=== PATIENT | female | born 1950 | race Caucasian/White ===

== ENCOUNTER 2018-01-08 14:19 | Observation (INO) ==
--- NOTE | 2018-01-08 16:12 | Emergency Department Note ---
Disposition Clinical Impression: Altered mental status Qualifiers: Altered mental status type: unspecified Qualified Code(s): R41.82 - Altered mental status, unspecified Disposition: Admitted As Inpatient Condition: Fair Referrals: Hilda Salinas CNP [Primary Care Provider] - Forms: ED Satisfaction Letter Altered Mental Status HPI - General Chief Complaint: ED Altered Mental Status Stated Complaint: AMS x2 days Time Seen by Provider: 01/08/18 15:54 Source: family Mode of arrival: ambulatory Limitations: altered mental status Nursing Notes Reviewed: Yes Vital Signs Reviewed: Yes - History of Present Illness HPI Narrative: 67-year-old female history of dementia, hypertension presents for evaluation of altered mental status. Previously care of the who states that they do live alone at home. states that he she has been more confused than usual the past couple days. Patient states that the patient is typically able to answer where she is at and what data weakness. Patient has not been able to answer those questions appropriately. Denies any recent changes in medications. It denying any chest pain. Patient does say that she feels short of breath. Patient denies any abdominal pain. No urinary or GI complaints. Denies any fevers. Denies any recent additional medications. Patient was treated for a UTI a month ago. - Related Data Home Medications Medication Instructions Recorded Confirmed Acetaminophen [Tylenol] 500 mg PO Q6H PRN 01/08/18 01/08/18 Bupropion HCl [Wellbutrin Xl] 300 mg PO QAM 01/08/18 01/08/18 Diphenhydramine HCl [Restfully 25 mg PO HS 01/08/18 01/08/18 Sleep] Ergocalciferol (VITAMIN D2) 50,000 unit PO MO 01/08/18 01/08/18 [Vitamin D2] Ferrous Gluconate [Ferrous 324 mg PO DAILY 01/08/18 01/08/18 Gluconate] Gabapentin [Neurontin] 800 mg PO HS 01/08/18 01/08/18 Levothyroxine [Synthroid] 50 mcg PO 0630 01/08/18 01/08/18 Melatonin/Herbal Complex #184 3 mg PO HS 01/08/18 01/08/18 [Melatonin + l-Theanine Softgel] Multivit,Th Iron,Other Min 1 each PO DAILY 01/08/18 01/08/18 [Therems-M] Omeprazole [PriLOSEC] 20 mg PO DAILY 01/08/18 01/08/18 Simvastatin [Zocor] 20 mg PO HS 01/08/18 01/08/18 Allergies Allergy/AdvReac Type Severity Reaction Status Date / Time aspirin Allergy Gastrointestinal Verified 01/08/18 14:40 Upset ibuprofen Allergy Gastrointestinal Verified 01/08/18 14:40 Upset nalbuphine [From Nubain] Allergy See Verified 01/08/18 14:40 Comments morphine AdvReac Irritable Verified 01/08/18 14:40 All systems ED: reviewed and negative except as stated. Constitutional: Denies: fever Cardiovascular: Denies: chest pain Respiratory: Reports: dyspnea. Denies: cough, sputum production Gastrointestinal: Denies: abdominal pain, nausea, vomiting Past Medical History - Past Medical History Source: patient, obtained from family Medical history: Reports: arthritis, cancer, thyroid disease, other Surgical history: Reports: cholecystectomy, colectomy, hysterectomy, orthopedic , other, other, pacemaker Psychiatric history: Reports: anxiety, depression [employer] history: Reports: no [employer] history - Social History Smoking Status: Former smoker Smokeless Tobacco Status: No Alcohol use: Reports: none Drug use: Reports: none Physical Exam - General Limitations: altered mental status General appearance: alert, in no apparent distress, other - Head Head exam: atraumatic, normocephalic - Eye Eye exam: Present: normal appearance, PERRL, EOMI. Absent: scleral icterus - ENT ENT exam: normal exam - Neck Neck exam: Present: normal inspection - Chest Chest inspection: Present: normal inspection, symmetric chest wall rise - Respiratory Respiratory exam: Present: normal lung sounds bilaterally. Absent: respiratory distress - Cardiovascular Cardiovascular exam: Present: regular rate, normal rhythm. Absent: systolic murmur - Abdominal Exam Abdominal exam: Present: soft, Non-Tender - Extremities Exam Extremities exam: Present: normal inspection - Back Exam Back exam: Present: normal inspection. Absent: CVA tenderness (R), CVA tenderness (L) - Neurological Exam Neurological exam: Present: alert, CN II-XII intact, other (Confused and unable to answer appropriate questions such as, current president, place, month) - Psychiatric Psychiatric exam: Present: flat affect - Skin Skin exam: Present: warm, dry, intact, normal color Course Course Narrative: Patient seen and examined. Patient will get basic labs as well as looking for source of infection such as chest x-rays urinalysis. Head CT. Disposition pending. - Reevaluation(s) Reevaluation #1: Patient's family is updated on plan of care. Patient's is appreciative that the patient will be admitted. Explained likely course of action is disposition admission and discharge planning. Time: 17:59 Vital Signs Temperature 99.1 F 01/08/18 14:37 Pulse Rate 105 01/08/18 14:37 Respiratory Rate 16 01/08/18 14:37 Blood Pressure 124/80 01/08/18 14:37 O2 Sat by Pulse Oximetry 100 01/08/18 14:37 Temperature 99.1 F 01/08/18 14:37 Pulse Rate 100 01/08/18 17:15 Respiratory Rate 16 01/08/18 17:15 Blood Pressure 129/85 01/08/18 17:15 O2 Sat by Pulse Oximetry 99 01/08/18 17:15 Oxygen Delivery Oxygen Delivery Room Air Altered Mental Status - [facility] Narrative Medical decision making narrative: 67-year-old female presents for evaluation of altered mental status. Patient's provided much of the history states patient has had an acute change in mental status over the past 2 days. Normally the patient's more alert and appropriate in answering questions. She is normally alert the place as well as time. Patient workup and the most part was unremarkable. Patient's head CT showed no acute abnormalities. Patient's symptoms are less likely result of a stroke. Patient does not have a fever or secondary signs of meningitis. Patient's urinalysis also is unremarkable. Patient's chest x-ray shows no signs of infection. Patient's labs are unremarkable. Given the patient's 's concern about home assistance at home. Patient will be admitted with likely further evaluation and discharge planning. - Lab Data Lab results reviewed: Yes I reviewed the patient's lab results. Result diagrams: 01/08/18 16:00 01/08/18 16:00 Lab Results 01/08/18 01/08/18 01/08/18 Range/Units 16:00 16:00 16:00 WBC 7.8 (4.3-11.1) K/mcL RBC 3.73 L (3.82-4.97) M/mcL Hgb 11.0 L (11.5-15.4) g/dL Hct 33.2 L (35.3-44.9) % MCV 89.0 (83.0-100.0) fL MCH 29.5 (28.0-33.3) pg MCHC 33.1 (31.6-35.5) g/dL RDW 13.2 (11.5-14.5) % Plt Count 401 H (140-400) K/mcL MPV 10.5 (9.4-12.4) fL Immature Gran % 0.4 (0-4) % Seg Neutrophils % 73.5 % Lymphocytes % 17.0 % Monocytes % 7.7 % Eosinophils % 0.6 % Basophils % 0.8 % Neutrophils # 5.8 (1.6-8.9) K/mcL Lymphocytes # 1.3 (0.6-4.6) K/mcL Monocytes # 0.6 (0.0-1.3) K/mcL Eosinophils # 0.1 (0.0-0.6) K/mcL Basophils # 0.1 (0.0-0.2) K/mcL Sodium 140 (136-145) mEq/L Potassium 3.8 (3.5-5.1) mEq/L Chloride 110 H (98-107) mEq/L Carbon Dioxide 22 L (23-29) mEq/L BUN 31 H (8-23) mg/dL Creatinine 0.81 (0.60-1.20) mg/dL Est GFR ( Amer) > 60 (> 60) Est GFR (Non-Af Amer) > 60 (> 60) BUN/Creatinine Ratio 38 H (6-26) Glucose 118 H (70-105) mg/dL Calculated Osmolality 298 (280-300) Calcium 10.0 (8.6-10.3) mg/dL Total Bilirubin 0.5 (0.3-1.0) mg/dL Direct Bilirubin 0.1 (0.0-0.2) mg/dL Indirect Bilirubin 0.4 (0.0-1.2) mg/dL AST 20 (13-39) Units/L ALT 14 (7-52) Units/L Alkaline Phosphatase 88 (34-104) Units/L Troponin I < 0.03 (< 0.04) ng/mL B-Natriuretic Peptide 12 (Less than 100) pg/mL Serum Total Protein 7.6 (6.4-8.9) g/dL Albumin 4.8 (3.5-5.7) g/dL Globulin 2.8 (2.4-3.5) g/dL Albumin/Globulin Ratio 1.7 (1.1-2.2) TSH 5.048 (0.340-5.600) mcIU/mL Ur Specimen Adequacy Urine Color (Yellow) Urine Clarity (Clear) Urine pH (5.0-8.0) pH Units Ur Specific [place] (1.010-1.025) Urine Protein (Neg-Trace) mg/dL Urine Glucose (UA) (Normal) mg/dL Urine Ketones (Negative) mg/dL Urine Blood (Negative) Urine Nitrite (Negative) Urine Bilirubin (Negative) Urine Urobilinogen (Normal) mg/dL Ur Leukocyte Esterase (Negative) Ur Squamous Epith Cells (None-Few) per lpf Calcium Oxalate Crystal Urine Mucus (Few) Ethyl Alcohol Cancelled 01/08/18 Range/Units 17:12 WBC (4.3-11.1) K/mcL RBC (3.82-4.97) M/mcL Hgb (11.5-15.4) g/dL Hct (35.3-44.9) % MCV (83.0-100.0) fL MCH (28.0-33.3) pg MCHC (31.6-35.5) g/dL RDW (11.5-14.5) % Plt Count (140-400) K/mcL MPV (9.4-12.4) fL Immature Gran % (0-4) % Seg Neutrophils % % Lymphocytes % % Monocytes % % Eosinophils % % Basophils % % Neutrophils # (1.6-8.9) K/mcL Lymphocytes # (0.6-4.6) K/mcL Monocytes # (0.0-1.3) K/mcL Eosinophils # (0.0-0.6) K/mcL Basophils # (0.0-0.2) K/mcL Sodium (136-145) mEq/L Potassium (3.5-5.1) mEq/L Chloride (98-107) mEq/L Carbon Dioxide (23-29) mEq/L BUN (8-23) mg/dL Creatinine (0.60-1.20) mg/dL Est GFR ( Amer) (> 60) Est GFR (Non-Af Amer) (> 60) BUN/Creatinine Ratio (6-26) Glucose (70-105) mg/dL Calculated Osmolality (280-300) Calcium (8.6-10.3) mg/dL Total Bilirubin (0.3-1.0) mg/dL Direct Bilirubin (0.0-0.2) mg/dL Indirect Bilirubin (0.0-1.2) mg/dL AST (13-39) Units/L ALT (7-52) Units/L Alkaline Phosphatase (34-104) Units/L Troponin I (< 0.04) ng/mL B-Natriuretic Peptide (Less than 100) pg/mL Serum Total Protein (6.4-8.9) g/dL Albumin (3.5-5.7) g/dL Globulin (2.4-3.5) g/dL Albumin/Globulin Ratio (1.1-2.2) TSH (0.340-5.600) mcIU/mL Ur Specimen Adequacy See below A Urine Color Yellow (Yellow) Urine Clarity Slightly Hazy (Clear) Urine pH 6.0 (5.0-8.0) pH Units Ur Specific [place] >= 1.030 H (1.010-1.025) Urine Protein Trace (Neg-Trace) mg/dL Urine Glucose (UA) Normal (Normal) mg/dL Urine Ketones Negative (Negative) mg/dL Urine Blood Trace-lysed H (Negative) Urine Nitrite Negative (Negative) Urine Bilirubin Negative (Negative) Urine Urobilinogen Normal (Normal) mg/dL Ur Leukocyte Esterase Negative (Negative) Ur Squamous Epith Cells Few (None-Few) per lpf Calcium Oxalate Crystal Present Urine Mucus Few (Few) Ethyl Alcohol - Radiology Data Radiology results reviewed: Yes I reviewed the patient's radiology results. Chest X-Ray 01/08/18 14:41 IMPRESSION: No acute process. D/ / Billy Esteves MD / Billy Esteves MD Interpreting Provider: Billy Esteves MD Head CT 01/08/18 16:06 IMPRESSION: Stable noncontrast examination of the brain without CT evidence of acute intracranial abnormality and re- demonstration of chronic small vessel ischemic changes. D/ / Yuliana Baca MD / Yuliana Baca MD Interpreting Provider: Yuliana Baca MD - EKG Data EKG attestation: Yes I reviewed and interpreted this EKG. EKG shows normal: sinus rhythm Rate: normal Rhythm: NSR [place]/QRS: left axis deviation, LAHB/LAFB T wave inversions: v1 (flatten) QRS morphology: poor R-wave progression Interpretation: no acute changes, nonspecific ST-T wave changes TPA Checklist - LKW: 3-4.5 hrs Add. Warnings/Precautions Patient/family understanding: The patient/family members have been counseled and understood the risk, benefit , and alternatives of treatment. Attestation Statement - Attestation Attestation: I examined this patient and my medical decision-making was reviewed with the Resident Physician. I agree with the documented findings, disposition and treatment plan as described except to the extent set forth below. Patient to ED with altered mental status. History provided by her . He states she has been more confused over the last 3 days. She has been more severe than usual. He has not been able to leave her. Normally knows her name and where she is but she does not today. Patient was treated for UTI by her PCP one month ago. He denies any falls or injuries. Patient awake and alert on evaluation. She defers all answers to her . Lungs clear. Abdomen soft. Plan. Altered mental status workup. is concerned for her safety.
[2018-01-08 16:19] LABS: Basophils # 0.1 K/mcL (0.0-0.2); Basophils % 0.8 %; Eosinophils # 0.1 K/mcL (0.0-0.6); Eosinophils % 0.6 %; Hematocrit 33.2 % (35.3-44.9); Immature Granulocytes % 0.4 % (0-4); Lymphocytes # 1.3 K/mcL (0.6-4.6); Mean Corpuscular HGB Conc 33.1 g/dL (31.6-35.5); Mean Corpuscular Hemoglobin 29.5 pg (28.0-33.3); Mean Platelet Volume 10.5 fL (9.4-12.4); Monocytes # 0.6 K/mcL (0.0-1.3); Monocytes % 7.7 %; Neutrophils # 5.8 K/mcL (1.6-8.9); Platelet Count 401 K/mcL (140-400); Red Blood Count 3.73 M/mcL (3.82-4.97); Red Cell Distribution Width 13.2 % (11.5-14.5); Segmented Neutrophils % 73.5 %
[2018-01-08 16:37] LABS: Troponin I < 0.03 ng/mL (< 0.04)
[2018-01-08 16:38] LABS: Alanine Aminotransferase 14 Units/L (7-52); Albumin 4.8 g/dL (3.5-5.7); Albumin/Globulin Ratio 1.7 (1.1-2.2); Alkaline Phosphatase 88 Units/L (34-104); Aspartate Amino Transferase 20 Units/L (13-39); BUN/Creatinine Ratio 38 (6-26); Bilirubin,Direct 0.1 mg/dL (0.0-0.2); Bilirubin,Indirect 0.4 mg/dL (0.0-1.2); Bilirubin,Total 0.5 mg/dL (0.3-1.0); Blood Urea Nitrogen 31 mg/dL (8-23); Carbon Dioxide 22 mEq/L (23-29); Chloride 110 mEq/L (98-107); Globulin 2.8 g/dL (2.4-3.5); Glucose 118 mg/dL (70-105); Osmolality,Calculated 298 (280-300); Potassium 3.8 mEq/L (3.5-5.1); Sodium 140 mEq/L (136-145); Total Protein 7.6 g/dL (6.4-8.9); eGFR For African Americans > 60 (> 60); eGFR For Non-African Americans > 60 (> 60)
[2018-01-08 16:50] LABS: Thyroid Stimulating Hormone 5.048 mcIU/mL (0.340-5.600)
[2018-01-08 17:43] LABS: Bilirubin,Urine Negative (Negative); Blood,Urine Trace-lysed (Negative); Color,Urine Yellow (Yellow); Glucose,Urine (UA) Normal (Normal); Ketones,Urine Negative (Negative); Leukocyte Esterase,Urine Negative (Negative); Nitrite,Urine Negative (Negative); Protein,Urine Trace mg/dL (Neg-Trace); Specific Gravity,Urine >= 1.030 (1.010-1.025); Urobilinogen,Urine Normal (Normal)
[2018-01-08 17:44] LABS: Clarity,Urine Slightly Hazy (Clear)
[2018-01-08 17:52] LABS: Calcium Oxalate Crystals,Urine Present; Mucus,Urine Few (Few); Squamous Epithelial Cell,Urine Few per lpf (None-Few)
[2018-01-08] MEDS ORDERED: 0.9 % Sodium Chloride 1,000 ML IVC ONE (17:54)
[2018-01-08 18:06] LABS: Amphetamine Screen,Urine Negative ng/mL (Cutoff=1000); Barbiturate Screen,Urine Negative ng/mL (Cutoff=200); Benzodiazepines Screen,Urine Negative ng/mL (Cutoff=200); Cannabinoid Screen,Urine Negative ng/mL (Cutoff = 50); Cocaine Screen,Urine Negative ng/mL (Cutoff= 300); Opiate Screen,Urine Negative ng/mL (Cutoff=300); Phencyclidine Screen,Urine Negative ng/mL (Cutoff=25)
[2018-01-08] MEDS ORDERED: Acetaminophen 325 MG TABLET PO PRN (20:11)
[2018-01-08] MEDS ORDERED: Naloxone 0.4 MG/ML INJ IVP PRN (20:11)
--- NOTE | 2018-01-08 20:26 | Internal Med History&Physical ---
Date of Encounter: 01/08/18 Time of Encounter: 19:45 Assessment and Plan (1) Altered mental status Current visit: Yes Status: Acute Patient with history of dementia presenting with altered mental status. Most likely metabolic encephalopathy. Could be medication related. Patient also appears to be dehydrated. We will monitor vital signs. Monitor mental status. Patient is on gabapentin 800 mg at bedtime at home. Will decrease dosage to 600 mg. Observe patient overnight. We will consult social research assistant for help with discharge planning. Qualifiers: Altered mental status type: disorientation Qualified Code(s): R41.0 - Disorientation, unspecified (2) Essential hypertension Current visit: Yes Status: Chronic Monitor blood pressure. Patient does not appear to be in any medications at home. (3) Hypothyroidism Current visit: Yes Status: Chronic Normal TSH. Qualifiers: Hypothyroidism type: acquired Qualified Code(s): E03.9 - Hypothyroidism, unspecified Internal Medicine - H&P: HPI Chief complaint: Confusion, disorientation Admitted From: Emergency Dept Plans for Post Hospital Care: Home History of present illness: Ms. Chaney is a 67 year old female patient with a history of dementia possibly Alzheimer's type, hypertension, presented to the ER with altered mental status and confusion. Has been going on progressively over the past 3 days. Patient is unable to provide much history due to her underlying dementia. History is therefore being obtained from her was present at the bedside. At baseline, patient has memory problems and needs help with her daily activities but she is usually oriented and is able to answer most questions well. The notices that the patient was becoming more disoriented and did not seem to be her usual self. She denies any chest pain or palpitations but according to the she did have some nausea and an episode of emesis. She also complained of abdominal pain but that has subsided now. She was treated for UTI 1 month back when she developed similar symptoms. She presently is not having any dysuria or trouble passing urine. She does report increased thirst at this time. No focal weakness. No headaches. No blurred vision. No slurred speech. Past Med Surg Social Fam HX - Past Medical History Attestation: Yes The following information was validated with the patient. Source: patient Medical history: arthritis, cancer, thyroid disease, other Psychiatric history: anxiety, depression - Past Surgical History Surgical History: cholecystectomy, colectomy, hysterectomy, orthopedic, other, other, pacemaker - Social History Smoking Status: Former smoker Smokeless Tobacco Status: No Alcohol use: none Drug use: none Internal Medicine - H&P: Meds Acetaminophen [Tylenol] 500 mg PO Q6H PRN 01/08/18 [History] Bupropion HCl [Wellbutrin Xl] 300 mg PO QAM 01/08/18 [History] Diphenhydramine HCl [Restfully Sleep] 25 mg PO HS 01/08/18 [History] Ergocalciferol (VITAMIN D2) [Vitamin D2] 50,000 unit PO MO 01/08/18 [History] Ferrous Gluconate [Ferrous Gluconate] 324 mg PO DAILY 01/08/18 [History] Gabapentin [Neurontin] 800 mg PO HS 01/08/18 [History] Levothyroxine [Synthroid] 50 mcg PO 0630 01/08/18 [History] Melatonin/Herbal Complex #184 [Melatonin + l-Theanine Softgel] 3 mg PO HS [History] Multivit,Th Iron,Other Min [Therems-M] 1 each PO DAILY 01/08/18 [History] Omeprazole [PriLOSEC] 20 mg PO DAILY 01/08/18 [History] Simvastatin [Zocor] 20 mg PO HS 01/08/18 [History] 3 Allergy/AdvReac Type Severity Reaction Status Date / Time aspirin Allergy Gastrointestinal Verified 01/08/18 14:40 Upset ibuprofen Allergy Gastrointestinal Verified 01/08/18 14:40 Upset nalbuphine [From Nubain] Allergy See Verified 01/08/18 14:40 Comments morphine AdvReac Irritable Verified 01/08/18 14:40 All Systems PM: A 10-system review of systems was performed and is negative for pertinent findings except as documented above in the HPI. - Constitutional Constitutional: malaise, no chills, no fever(s), no night sweats - EENT Eyes: no change in vision, no discharge, no pain, no photophobia Ears: no ear discharge, no ear pain, no tinnitus Nose, mouth and throat: no dysphagia, no nasal discharge, no neck pain, no sore throat - Cardiovascular Cardiovascular ROS IM: no chest pain, no diaphoresis, no dyspnea, no lightheadedness, no palpitations, no syncope - Respiratory Respiratory: no cough, no dyspnea, no wheezing, no excessive phlegm production - Gastrointestinal Gastrointestinal: no abdominal pain, no diarrhea, no hematemesis, no hematochezia, no melena, no nausea, no vomiting - Genitourinary Genitourinary: no change in urinary stream, no dysuria, no flank pain, no hematuria - Musculoskeletal Musculoskeletal ROS IM: no numbness, no tingling - Integumentary Integumentary IM: no rash, no unusual bruising - Neurological Neurological ROS: no confusion, no convulsions, no focal weakness, no numbness, no tingling, no tremor(s) - Hematologic/Lymphatic Hematologic/Lymphatic: no easy bruising - Constitutional Vitals: Temp Pulse Resp BP Pulse Ox 99.1 F 93 18 123/91 93 01/08/18 14:37 01/08/18 20:16 01/08/18 20:16 01/08/18 20:16 01/08/18 20:16 General appearance: Present: cooperative, A&O X 1 Exam: Patient is able to answer current questions but has trouble with short and long- term memory. - Respiratory Respiratory exam: Present: CTAB. Absent: accessory muscle use, rales, rhonchi, wheezes - Cardiovascular Cardiovascular exam: Present: RRR, +S1, +S2. Absent: diastolic murmur, gallop, rubs, systolic murmur - GI/Abdominal GI/Abdominal exam: Present: normal bowel sounds, soft, no peritoneal signs. Absent: distended, tenderness - Extremities Exam Extremities exam: Present: warm, radial pulses palpable and symmetrical. Absent : calf tenderness, cyanotic, pedal edema - Neurological Exam Neurological exam: Present: altered, CN II-XII intact, no focal deficits. Absent: facial droop, speech deficit - Skin Skin exam: Present: dry, intact Internal Med - H&P Results - Labs CBC & Chem 7: 01/08/18 16:00 01/08/18 16:00 - Impressions Impressions Chest X-Ray 01/08/18 14:41 IMPRESSION: No acute process. D/ / Billy Esteves MD / Billy Esteves MD Interpreting Provider: Billy Esteves MD Head CT 01/08/18 16:06 IMPRESSION: Stable noncontrast examination of the brain without CT evidence of acute intracranial abnormality and re- demonstration of chronic small vessel ischemic changes. D/ / Yuliana Baca MD / Yuliana Baca MD Interpreting Provider: Yuliana Baca MD
[2018-01-08] MEDS ORDERED: Gabapentin 300 MG CAPSULE PO SCH (21:00)
[2018-01-08] MEDS ORDERED: Melatonin 3 MG TABLET PO SCH (21:00)
[2018-01-09] MEDS ORDERED: Ringers Solution, Lactated 1,000 ML IVC SCH (00:30)
--- NOTE | 2018-01-09 07:27 | Electrocardiograph Report ---
[place] [id number] Test Date: 2018-01-08 Pat Name: Margarita Chaney Department: 102 Room: 3B11 Gender: F Tour Director: : 1950 Requested By: Navi Neville Order Number: [id number] Reading MD: Erick Alvarado MD Measurements Intervals Doss Rate: 98 P: 1 MD: 117 QRS: -45 QRSD: 85 T: 31 QT: 342 QTc: 398 Interpretive Statements SINUS RHYTHM WITH SHORT MD INTERVAL Poor R wave progression LEFT ANTERIOR FASCICULAR BLOCK MODERATE VOLTAGE CRITERIA FOR LVH Electronically Signed On 01-09-2018 7:25:16 EDT by Erick Alvarado MD
[2018-01-09] MEDS ORDERED: Multivit/Ca/Min/Fe/FA 1 TAB TABLET PO SCH (09:00)
[2018-01-09] MEDS ORDERED: BuPROPion XL (24 HR) 150 MG TABLET PO SCH (09:00)
[2018-01-09 11:51] VITALS: BP 125/86
[2018-01-09 13:32] LABS: Bilirubin,Urine Negative (Negative); Blood,Urine Negative (Negative); Clarity,Urine Clear (Clear); Color,Urine Yellow (Yellow); Glucose,Urine (UA) Normal (Normal); Ketones,Urine Negative (Negative); Leukocyte Esterase,Urine Moderate (Negative); Nitrite,Urine Negative (Negative); Protein,Urine Negative (Neg-Trace); Specific Gravity,Urine > 1.030 (1.010-1.025); Urobilinogen,Urine Normal (Normal)
[2018-01-09 13:34] LABS: Bacteria,Urine None Seen per hpf (None-Few); Hyaline Casts,Urine None Seen per lpf (None-Few); Squamous Epithelial Cell,Urine Many per lpf (None-Few); WBC,Urine 15-30 per hpf (0-3)
--- NOTE | 2018-01-09 14:32 | Discharge Summary ---
- NOTES TO OUTPATIENT PROVIDER Notes to Outpatient Provider: Recommend possible change in Gabapentin. Pt has returned to baseline after it was stopped at home and dose decreased here during admission. Neither pt nor know why she is taking it. Pt also is taking 2 sleep aids at home, I will recommend stopping one, likely the Benadryl. Date of Encounter: 01/09/18 Time of Encounter: 09:00 - Discharge Diagnosis (1) Altered mental status Priority: Primary Status: Resolved Comments: Pt is alert and oriented to name and place, unaware of month or year, is aware of President. at bedside states that she has returned to her baseline. Urine and repeat urine are negative for infection. Chest xray negative for acute cardiopulmonary process. Head CT is stable, no evidence of acute intracranial abnormality, chronic small vessel ischemic changes. Pt has been afebrile and has no leukocytosis. states that due to patient's dementia, she has become more stubborn at home and sometimes takes her medications twice ,likely cause of AMS on admission. Recommend that pt has home health and assistance with setting up medications, COAL PASSER on board. Qualifiers: Altered mental status type: disorientation Qualified Code(s): R41.0 - Disorientation, unspecified (2) Dementia Priority: Secondary Status: Chronic Comments: Chronic. Pt lives at home with , recommend home health for assistance with medication set up and administration. Continue to monitor for safety. Qualifiers: Dementia type: unspecified type Dementia behavioral disturbance: without behavioral disturbance Qualified Code(s): F03.90 - Unspecified dementia without behavioral disturbance (3) Noncompliance Priority: Secondary Status: Acute Comments: reports that pt sometimes takes her medication doses twice. He states that she "has become more stubborn and wants to do everything herself." Likely cause of her altered mental status on admission, pt takes 2 kinds of sleep aids and Gabapentin. states that he held her medication at home for 2 days prior to arrival and with decrease in dose of Gabapentin, pt has returned to baseline. Recommend home health for assistance with setting up and securing pt's medications. (4) Essential hypertension Priority: Secondary Status: Chronic Comments: Well controlled. Continue home medications. (5) Hypothyroidism Priority: Secondary Status: Chronic Comments: Chronic. .Continue home medications. Qualifiers: Hypothyroidism type: acquired Qualified Code(s): E03.9 - Hypothyroidism, unspecified (6) DVT prophylaxis Priority: Secondary Status: Acute Comments: Observation status, pt has been up to chair and at bedside. Hospital course: Ms. Chaney is a 67 year old female Discharge discussed with: patient, family - Time Spent with Patient Total time spent providing and/or coordinating discharge services: Less than 30 minutes - Discharge Medications Prescriptions: Gabapentin [Neurontin] 600 mg PO HS #14 tablet Home Medications: Acetaminophen [Tylenol] 500 mg PO Q6H PRN 01/08/18 [History] Bupropion HCl [Wellbutrin Xl] 300 mg PO QAM 01/08/18 [History] Ergocalciferol (VITAMIN D2) [Vitamin D2] 50,000 unit PO MO 01/08/18 [History] Ferrous Gluconate 324 mg PO DAILY 01/08/18 [History] Levothyroxine [Synthroid] 50 mcg PO 0630 01/08/18 [History] Melatonin/Herbal Complex #184 [Melatonin + l-Theanine Softgel] 3 mg PO HS [History] Multivit,Th Iron,Other Min [Therems-M] 1 each PO DAILY 01/08/18 [History] Omeprazole [PriLOSEC] 20 mg PO DAILY 01/08/18 [History] Simvastatin [Zocor] 20 mg PO HS 01/08/18 [History] Gabapentin [Neurontin] 600 mg PO HS #14 tablet 01/09/18 [Rx] Allergies/Adverse Reactions: 3 Allergy/AdvReac Type Severity Reaction Status Date / Time aspirin Allergy Gastrointestinal Verified 01/08/18 14:40 Upset ibuprofen Allergy Gastrointestinal Verified 01/08/18 14:40 Upset nalbuphine [From Nubain] Allergy See Verified 01/08/18 14:40 Comments morphine AdvReac Irritable Verified 01/08/18 14:40 Date of admission: 01/08/18 19:52 Primary care physician: Hilda Salinas CNP Consults: 01/09/18 00:20 Consult to Tube Puller [CONS] Routine Reason for SW Consult: DischarGE planning Discharging clinician: Lenora Villeda Anticipated date of discharge: 01/09/18 - Constitutional Vitals: Temp Pulse Resp BP Pulse Ox 97.6 F 81 16 125/86 100 01/09/18 11:50 01/09/18 11:50 01/09/18 11:50 01/09/18 11:50 01/09/18 11:50 General appearance: Present: cooperative, A&O X 1, pleasant, no acute distress, answers questions appropriately - Head Head exam: Present: atraumatic, normal inspection, normocephalic - Eye Eye exam: Present: normal appearance, conjuntiva pink, sclera anicteric - Neck Neck exam general surgery: Present: normal inspection, supple, trachea midline. Absent: lymphadenopathy, tenderness - Respiratory Respiratory exam: Present: CTAB. Absent: accessory muscle use, rales, rhonchi, wheezes - Cardiovascular Cardiovascular exam: Present: RRR, +S1, +S2. Absent: diastolic murmur, gallop, rubs, systolic murmur - GI/Abdominal GI/Abdominal exam: Present: normal bowel sounds, soft, no peritoneal signs. Absent: distended, hepatomegaly, tenderness - Extremities Exam Extremities exam: Present: normal capillary refill, normal inspection, warm, radial pulses palpable and symmetrical. Absent: calf tenderness, cyanotic, pedal edema - Neurological Exam Neurological exam: Present: alert, no focal deficits. Absent: oriented X3, facial droop, speech deficit - Skin Skin exam: Present: dry, intact, normal color, warm. Absent: rash - Patient Status Disposition: Home Health Service Condition: Good Functional capacity at discharge: independent ambulation Overall status at discharge: patient is back to baseline - Discharge Instructions Follow Up With: Hilda Salinas CNP [Primary Care Provider] - Additional Instructions: Stop taking the 800mg Neurontin at night. Start taking 600mg tablet, the prescription has been called to [facility] pharmacy in [place]. Be cautious to not give the wrong dose. Resume her other home medications. Resume diet and activities as tolerated. Follow up with your PCP in the next 7-10 days for a recheck and refill on lowered dose of Gabapentin. Return to the ER as needed for any other problems or concerns, or if your symptoms return or worsen. - Diet and Activity Activity: increase activity as tolerated Diet: advance to your usual diet
--- NOTE | 2018-01-09 15:07 | Physician Discharge Referral ---
Home Health/Hosp Referral Info Transfer to: Home Health Provider in Charge Post Discharge: PCP - Diagnosis (1) Altered mental status Priority: Primary Status: Resolved (2) Dementia Priority: Secondary Status: Chronic (3) Noncompliance Priority: Secondary Status: Acute (4) Essential hypertension Priority: Secondary Status: Chronic (5) Hypothyroidism Priority: Secondary Status: Chronic (6) DVT prophylaxis Priority: Secondary Status: Acute - Respiratory Orders Smoking Cessation: Smoking cessation has been advised. For more information, call the [place] Tobacco Quit Line at 1-136-EIPW-NOW. - Diet/Nutrition Diet/Nutrition Orders: Regular - Activity Activity Orders: Up ad dilcia - Services Needed Following services are medically necessary services: Nursing (Requesting assistance for medication set up at home), Home Health Aide - Transfer Medications Prescriptions: Gabapentin [Neurontin] 600 mg PO HS #14 tablet Home Medications: Acetaminophen [Tylenol] 500 mg PO Q6H PRN 01/08/18 [History] Bupropion HCl [Wellbutrin Xl] 300 mg PO QAM 01/08/18 [History] Ergocalciferol (VITAMIN D2) [Vitamin D2] 50,000 unit PO MO 01/08/18 [History] Ferrous Gluconate 324 mg PO DAILY 01/08/18 [History] Levothyroxine [Synthroid] 50 mcg PO 0630 01/08/18 [History] Melatonin/Herbal Complex #184 [Melatonin + l-Theanine Softgel] 3 mg PO HS [History] Multivit,Th Iron,Other Min [Therems-M] 1 each PO DAILY 01/08/18 [History] Omeprazole [PriLOSEC] 20 mg PO DAILY 01/08/18 [History] Simvastatin [Zocor] 20 mg PO HS 01/08/18 [History] Gabapentin [Neurontin] 600 mg PO HS #14 tablet 01/09/18 [Rx] Allergies/Adverse Reactions: 3 Allergy/AdvReac Type Severity Reaction Status Date / Time aspirin Allergy Gastrointestinal Verified 01/08/18 14:40 Upset ibuprofen Allergy Gastrointestinal Verified 01/08/18 14:40 Upset nalbuphine [From Nubain] Allergy See Verified 01/08/18 14:40 Comments morphine AdvReac Irritable Verified 01/08/18 14:40 Certification: Further, I certify that my clinical findings support that this patient is homebound (i.e. absences from home require considerable and taxing effort and are for medical reasons or anabaptist services or infrequently or short duration when for other reasons) because: Homebound Reason: Altered mental status requiring supervision when leaving home Attestation: My signature below is to certify that this patient is under my care and that I, or nurse practitioner, or a physician's assistant merchandiser working with me, has a face-to -face encounter with this patient.
== END 2018-01-09 16:22 | disposition home health service (06) ==
LOC: EMEROO 14:19 → 3BNU 14:19
PROVIDERS: ADMIT Internal Medicine; ATTEND Registered Nurse

== ENCOUNTER 2018-04-27 00:43 | Inpatient (IN) ==
--- NOTE | 2018-04-27 05:41 | Internal Med History&Physical ---
Date of Encounter: 04/27/18 Time of Encounter: 05:30 Internal Medicine - H&P: HPI Chief complaint: abdominal pain History of present illness: Ms. Chaney is a 67 year old female pacemaker, gastric ulcer, hypertension, dementia, and PE who presented to the ED at [facility] for left upper quadrant pain. Patient states that she has been having abdominal cramping for about 3 weeks. She is not able to eat anything for about a week. She is unsure how long she was in the hospital but she was discharged on 04/19 from [facility] at [place]. She believes that she has been on Cipro for one week. Her last bowel movement was one week ago. She does admit to associated nausea and vomiting. Denies dysuria, diarrhea, hemoptysis, hematochezia. Patient's previous surgeries have been at [facility] but her surgeon no longer works at [facility]. She cannot recall how long ago her last colonoscopy was. Upon arrival to the ED, patient's blood pressure was 176/110, heart rate of 76. Labs showed a hemoglobin of 10.9 platelet count of 421 potassium of 2.9 and creatinine of 0.87,. lactic acid, Amylase and lipase were negative. Liver enzymes are within normal limits. UA suspicious for a UTI with positive nitrates. CT of the abdomen and pelvis showed moderate sigmoid d diverticulosis , persistent probable adynamic ileus. In the ED, patient was given Phenergan, 1 L bolus, potassium chloride 10 mEq to 100 ml, Cipro, Flagyl, Dilaudid, and Zofran. Patient was transferred from [facility] in [place] to [facility] for surgical consult for sigmoid diverticulitis and ileus. Past Med Surg Social Fam HX - Past Medical History Medical history: arthritis, cancer, thyroid disease, other Additional medical history: small bowel obstruction Psychiatric history: anxiety, depression - Past Surgical History Surgical History: cholecystectomy, colectomy, hysterectomy, orthopedic, other, other, pacemaker Additional surgical history: bowel surgery r/t small bowel obstruction September 29. bilat shoulder rotator cuff. bilat carpal tunnel - Social History Smoking Status: Former smoker Smokeless Tobacco Status: No Alcohol use: none Drug use: none - Family History Mother History Unknown: Yes Hx Family Cancer: Yes (lung) Father History Unknown: Yes Hx Family Cancer: Yes (lung) Internal Medicine - H&P: Meds Bupropion HCl [Wellbutrin Xl] 150 mg PO QAM 01/08/18 [History] Ergocalciferol (VITAMIN D2) [Vitamin D2] 50,000 unit PO MO 01/08/18 [History] Ciprofloxacin HCl [Cipro] 500 mg PO DAILY 04/27/18 [History] Melatonin 5 mg PO QPM PRN 04/27/18 [History] metroNIDAZOLE [Flagyl] 500 mg PO DAILY 04/27/18 [History] 3 Allergy/AdvReac Type Severity Reaction Status Date / Time aspirin Allergy Gastrointestinal Verified 01/08/18 14:40 Upset ibuprofen Allergy Gastrointestinal Verified 01/08/18 14:40 Upset nalbuphine [From Nubain] Allergy See Verified 01/08/18 14:40 Comments morphine AdvReac Irritable Verified 01/08/18 14:40 All Systems PM: A 10-system review of systems was performed and is negative for pertinent findings except as documented above in the HPI. - Constitutional Vitals: Temp Pulse Resp BP Pulse Ox 98.4 F 53 16 149/89 98 04/27/18 03:05 04/27/18 03:05 04/27/18 03:05 04/27/18 03:05 04/27/18 03:05 Exam: Constitutional: Alert, in no acute distress Head: Normocephalic, atraumatic Heart: Normal, regular rate and rhythm, no murmurs Lungs: Clear to auscultation, no wheezes, rales, or rhonchi Abdomen: diffuse tenderness, worst in the left upper quadrant. bowel sounds hyperactive, Soft, nondistended, no guarding or rigidity. Extremities: No edema, No clubbing, radial pulse +2/4, capillary refill <2sec. Skin: Skin warm and dry, no lesions, no rashes, no jaundice Neurologic: CN grossly intact Psych: Cooperative with exam, good eye contact, impaired memory of longer term events, speech clear, thought process logical, and goal directed - Assessment and plan (1) Sigmoid diverticulosis Current Visit: Yes Status: Acute Assessment and plan: CT abdomen and pelvis showed sigmoid diverticulitis and ileus. Surgery consulted for diverticulitis and ileus. Patient has been on Plan: - Zosyn IV TID, as patient has failed metronidazole and cipro - pain control: Oxycodone 5mg SL - surgery consult in for the AM (2) Ileus Current Visit: Yes Status: Acute Assessment and plan: Possibly 2/2 to electrolyte imbalance, hypokalemia. Plan: - correct potassium levels -Consider NG if patient starts to have vomiting - Zofran for nausea - Diet NPO. (3) Essential hypertension Current Visit: No Status: Chronic Assessment and plan: Patient is NPO therefore will add IV hydralazine for prn coverage for systolic BP > 160. (4) Hypokalemia Current Visit: Yes Status: Acute Assessment and plan: potassium 2.9. replaced K 10meq in the Ed. Replace with KCl 40meq IV and recheck. (5) DVT prophylaxis Current Visit: No Status: Acute Assessment and plan: Heparin SQ - Time Spent With Patient Total time spent is greater than 50% in coordination of care (as documented) at patient's floor/unit and/or counseling patient:
[2018-04-27] MEDS ORDERED: Naloxone 0.4 MG/ML INJ IVP PRN (06:02)
[2018-04-27] MEDS ORDERED: 0.9 % Sodium Chloride 1,000 ML IVC SCH (06:15)
[2018-04-27] MEDS ORDERED: Potassium Chloride 40 MEQ, Lidocaine 1% 2 ML in D5% in Water 500 ML IVPB ONE (06:32)
[2018-04-27] MEDS: *HR* Heparin 5,000 UNIT/ML VIAL SQ SCH ×2 (06:43→17:51)
[2018-04-27] MEDS: OXYCODONE Oral CONC 10 MG/0.5 ML ORAL.SYG SL PRN ×4 (06:43→22:02)
[2018-04-27] MEDS: Piperacillin/Tazobactam 3.375 GM in 0.9 % Sodium Chloride Mini Bag 100 ML IVPB SCH ×3 (07:51→23:48)
[2018-04-27] MEDS ORDERED: Piperacillin/Tazobactam 3.375 GM in D5% in Water (Mini-Bag+) 100 ML IVPB SCH (08:00)
--- NOTE | 2018-04-27 09:29 | Event Note ---
Date of Encounter: 04/27/18 Time of Encounter: 04:10 I was present with resident during the history and exam. I discussed the case with the resident and agree with the findings and plan as documented in the residents note. Patient also noted to have a UTI as per her UA obtained at [facility]. We will treat with ceftriaxone. History from patient complicated by what the patient describes as her Alzheimers, therefore during my interview with her conflicting answers were given by the patient. Continue zosyn for possible diverticulitis.
[2018-04-27 09:43] LABS: Alanine Aminotransferase 11 Units/L (7-52); Albumin 3.7 g/dL (3.5-5.7); Albumin/Globulin Ratio 1.8 (1.1-2.2); Alkaline Phosphatase 67 Units/L (34-104); Aspartate Amino Transferase 21 Units/L (13-39); BUN/Creatinine Ratio 14 (6-26); Bilirubin,Total 0.4 mg/dL (0.3-1.0); Blood Urea Nitrogen 10 mg/dL (8-23); Calcium 8.2 mg/dL (8.6-10.3); Carbon Dioxide 21 mEq/L (23-29); Chloride 114 mEq/L (98-107); Globulin 2.1 g/dL (2.4-3.5); Glucose 84 mg/dL (70-105); Magnesium 1.9 mg/dL (1.6-2.6); Osmolality,Calculated 292 (280-300); Phosphorous 2.5 mg/dL (2.7-4.5); Potassium 3.1 mEq/L (3.5-5.1); Sodium 142 mEq/L (136-145); Total Protein 5.8 g/dL (6.4-8.9); eGFR For African Americans > 60 (> 60); eGFR For Non-African Americans > 60 (> 60)
--- NOTE | 2018-04-27 11:02 | Event Note ---
<Rui Carreno - Last Filed: 04/27/18 13:24> Date of Encounter: 04/27/18 I reviewed my partner's H&P from this morning. Patient clinically appears nontoxic. I did stop Rocephin as she is already on Zosyn which should adequately cover urinary tract infection, if present. We will attempt to obtain CT scan results. We will continue with IV Zosyn. Pain control as necessary. She is nothing by mouth due to mild ileus but will continue to monitor. Neurosurgery consult if she does not improve rapidly. Patient is hemodynamically stable. I discussed the case with the resident Dr. price today. I did also personally interview and examined this patient. Ration has hypokalemia and I did change IV fluids to 0.9 normal saline with potassium. Continue to monitor closely. <Armaan Price - Last Filed: 04/27/18 15:02> Date of Encounter: 04/27/18 Time of Encounter: 09:35 Subjective: Patient seen and examined lying in bed. No acute distress. Notes LUQ abd pain. Denies history of diverticulitis other than recent episode (was at [facility] for Diverticulitis, treated with flagyl/cipro, discharged on 04/19/18) ; patient notes worsening abdominal pain at home, she returned to [facility] and she states they transferred her to [place] in case she needed surgery. Patient denies chest pain, dyspnea, nausea. Patient states she has early Alzheimer's disease, but has good support at home from and family. PE: Exam: Constitutional: Alert, in no acute distress Head: Normocephalic, atraumatic Heart: Normal, regular rate and rhythm, no murmurs Lungs: Clear to auscultation, no wheezes, rales, or rhonchi Abdomen: diffuse tenderness, worst in the left upper quadrant. Soft, nondistended, no guarding or rigidity, BS+ Extremities: Warm, No edema, No clubbing. Skin: Skin warm and dry, no lesions, no rashes, no jaundice Neurologic/Psych: alert and awake, Cooperative with exam, mood and affect normal , good eye contact, speech clear, thought process logical, and goal directed (1) Sigmoid diverticulosis Current Visit: Yes Status: Acute Assessment and plan: CT abdomen and pelvis with contrast (6/28/18) showed sigmoid diverticulitis and ileus. Patient previously on flagyl and cipro. No surgical indications at this time. Plan: - Zosyn IV TID, as patient has failed previous abx - pain control: Oxycodone 5mg SL - If not improving, consider repeat CT in 2-3 days (or soon if worsening) (2) Ileus Possibly 2/2 to electrolyte imbalance, hypokalemia. - replace K+ - Zofran for nausea - Diet NPO. (3) Essential hypertension Patient is NPO therefore will add IV hydralazine for prn coverage for systolic BP > 160. (4) Hypokalemia potassium 2.9. replaced K 10meq in the Ed. Replace with KCl 40meq IV and recheck. (5) UTI UA done at [facility], was started on rocephin, however zosn should cover possible UTI. Continue Zosyn (rocephin dc'd) (6) DVT prophylaxis Heparin SQ
[2018-04-27] MEDS: Ondansetron ODT 4 MG TAB.RAPDIS SL PRN (13:10)
[2018-04-27] MEDS: 0.9 % Sodium Chloride w KCl 20 MEQ/1,000 ML MLS IVC SCH ×2 (13:40→23:50)
[2018-04-28] MEDS: Ondansetron ODT 4 MG TAB.RAPDIS SL PRN ×2 (00:20→19:01)
[2018-04-28] MEDS: OXYCODONE Oral CONC 10 MG/0.5 ML ORAL.SYG SL PRN ×2 (03:32→20:35)
[2018-04-28] MEDS ORDERED: D5% in Water 1,000 ML IVC PRN (04:15)
[2018-04-28] MEDS ORDERED: Dextrose Gel 15 GM/37.5 ML TUBE PO PRN ×2 (04:15)
[2018-04-28] MEDS ORDERED: *HR* Dextrose 50 % in Water (Syg) 50 ML SYRINGE IVP PRN (04:15)
[2018-04-28 04:53] LABS: Basophils % 0.7 %; Eosinophils # 0.1 K/mcL (0.0-0.6); Hematocrit 28.4 % (35.3-44.9); Immature Granulocytes % 0.3 % (0-4); Lymphocytes # 1.1 K/mcL (0.6-4.6); Lymphocytes % 18.6 %; Mean Corpuscular HGB Conc 31.7 g/dL (31.6-35.5); Mean Corpuscular Hemoglobin 28.2 pg (28.0-33.3); Mean Platelet Volume 10.3 fL (9.4-12.4); Monocytes # 0.6 K/mcL (0.0-1.3); Monocytes % 9.3 %; Neutrophils # 4.2 K/mcL (1.6-8.9); Platelet Count 269 K/mcL (140-400); Red Blood Count 3.19 M/mcL (3.82-4.97); Red Cell Distribution Width 15.2 % (11.5-14.5); Segmented Neutrophils % 69.1 %
[2018-04-28 05:19] LABS: BUN/Creatinine Ratio 11 (6-26); Blood Urea Nitrogen 8 mg/dL (8-23); Calcium 8.2 mg/dL (8.6-10.3); Carbon Dioxide 21 mEq/L (23-29); Chloride 115 mEq/L (98-107); Glucose 76 mg/dL (70-105); Osmolality,Calculated 291 (280-300); Potassium 3.6 mEq/L (3.5-5.1); Sodium 142 mEq/L (136-145); eGFR For African Americans > 60 (> 60); eGFR For Non-African Americans > 60 (> 60)
[2018-04-28] MEDS: *HR* Heparin 5,000 UNIT/ML VIAL SQ SCH ×2 (05:30→18:42)
[2018-04-28] MEDS ORDERED: cefTRIAXone 1,000 MG in Water for inj. (sterile) 20 ML 10 ML IVP SCH (09:00)
[2018-04-28] MEDS: Piperacillin/Tazobactam 3.375 GM in 0.9 % Sodium Chloride Mini Bag 100 ML IVPB SCH ×2 (09:56→18:13)
[2018-04-28] MEDS: 0.9 % Sodium Chloride w KCl 20 MEQ/1,000 ML MLS IVC SCH (09:57)
--- NOTE | 2018-04-28 12:52 | Internal Med Progress Note ---
Date of Encounter: 04/28/18 Time of Encounter: 10:00 - Assessment and plan (1) Sigmoid diverticulosis Current Visit: Yes Status: Acute Assessment and plan: CT abdomen and pelvis showed sigmoid diverticulitis and ileus. Surgery consulted for diverticulitis and ileus. Patient has been on Plan: - Zosyn IV TID, as patient has failed metronidazole and cipro - pain control: Oxycodone 5mg SL - surgery consult in for the AM 04/28: Day #2 IV Zosyn. Anticipate attend a 14 day course of therapy. Records indicate she was treated with Cipro alone, which would not necessarily adequately treat diverticulitis, with anaerobic involvement. We will continue Zosyn today and then make further decisions on antibiotics pending clinical progress. She was noted to have a possible ileus, a repeat abdominal film is ordered. As not showing any clinical signs of this. We will continue to monitor. We will advance to clears as able. (2) Ileus Current Visit: Yes Status: Acute Assessment and plan: Possibly 2/2 to electrolyte imbalance, hypokalemia. Plan: - correct potassium levels -Consider NG if patient starts to have vomiting - Zofran for nausea - Diet NPO. 04/28: See above. Continue IV fluids and electrolyte replacement. (3) Essential hypertension Current Visit: No Status: Chronic Assessment and plan: Patient is NPO therefore will add IV hydralazine for prn coverage for systolic BP > 160. 04/28: Blood pressure is stable, monitor (4) DVT prophylaxis Current Visit: No Status: Acute (5) Hypokalemia Current Visit: Yes Status: Acute Assessment and plan: potassium 2.9. replaced K 10meq in the Ed. Replace with KCl 40meq IV and recheck 04/28: Improved. Potassium replacement is in IV fluids as well. - Time Spent With Patient Total time spent is greater than 50% in coordination of care (as documented) at patient's floor/unit and/or counseling patient: 25 - 35 minutes - Subjective Interval history: Ms. Chaney is a 67 year old female pacemaker, gastric ulcer, hypertension, dementia, and PE who presented to the ED at [facility] in [place] for left upper quadrant pain. Patient states that she has been having abdominal cramping for about 3 weeks. She is not able to eat anything for about a week. She is unsure how long she was in the hospital but she was discharged on 04/19 from [facility] [place]. She believes that she has been on Cipro for one week. Her last bowel movement was one week ago. She does admit to associated nausea and vomiting. Denies dysuria, diarrhea, hemoptysis, hematochezia. Patient's previous surgeries have been at [facility] but her surgeon no longer works at [facility]. She cannot recall how long ago her last colonoscopy was. Upon arrival to the ED, patient's blood pressure was 176/110, heart rate of 76. Labs showed a hemoglobin of 10.9 platelet count of 421 potassium of 2.9 and creatinine of 0.87,. lactic acid, Amylase and lipase were negative. Liver enzymes are within normal limits. UA suspicious for a UTI with positive nitrates. CT of the abdomen and pelvis showed moderate sigmoid d diverticulosis , persistent probable adynamic ileus. In the ED, patient was given Phenergan, 1 L bolus, potassium chloride 10 mEq to 100 ml, Cipro, Flagyl, Dilaudid, and Zofran. Patient was transferred from [facility] in [place] to [facility] for surgical consult for sigmoid diverticulitis and ileus. 04/28: Patient is currently day #2 IV Zosyn. Her history is somewhat limited by her dementia. She does state that she has ongoing abdominal pain on the left mid abdomen but it is significantly improved. No fevers or chills. Denies any nausea vomiting or diarrhea. No chest pain or shortness of breath. - Constitutional Vitals: Temp Pulse Resp BP Pulse Ox 98.1 F 75 14 133/86 99 04/28/18 11:33 04/28/18 11:33 04/28/18 11:33 04/28/18 11:33 04/28/18 11:33 General appearance: Present: A&O X 2, no acute distress Exam: Forgetful - Head Head exam: Present: atraumatic, normocephalic - Eye Eye exam: Present: PERRL, conjuntiva pink, sclera anicteric Pupils: Present: PERRL - Neck Neck exam general surgery: Present: supple, trachea midline. Absent: lymphadenopathy - Respiratory Respiratory exam: Present: CTAB. Absent: accessory muscle use, rales, rhonchi, wheezes - Cardiovascular Cardiovascular exam: Present: RRR, +S1, +S2. Absent: diastolic murmur, gallop, rubs, systolic murmur - GI/Abdominal GI/Abdominal exam: Present: normal bowel sounds, soft, tenderness (Left-sided mid abdominal tenderness to palpation. Improved from admission. No rebound or guarding.) - Extremities Exam Extremities exam: Present: warm, radial pulses palpable and symmetrical. Absent : calf tenderness, cyanotic, pedal edema - Neurological Exam Neurological exam: Present: CN II-XII intact, oriented X3, no focal deficits. Absent: pronater drift, facial droop, speech deficit - Skin Skin exam: Present: dry, intact Internal Medicine: Result - Labs CBC & Chem 7: 04/28/18 04:41 04/28/18 04:41 Labs: Short CBC 04/28/18 Range/Units 04:41 WBC 6.0 (4.3-11.1) K/mcL Hgb 9.0 L (11.5-15.4) g/dL Hct 28.4 L (35.3-44.9) % Plt Count 269 (140-400) K/mcL Neutrophils # 4.2 (1.6-8.9) K/mcL BMP 04/28/18 04:41 Sodium 142 Potassium 3.6 Chloride 115 H Carbon Dioxide 21 L BUN 8 Creatinine 0.73 Glucose 76 Calcium 8.2 L Consult Discharge Plan - Plan Referrals: NONE,PCP [Primary Care Provider] -
[2018-04-28] MEDS: Potassium Chloride 40 MEQ in D5% in 0.9% NACL 1,000 ML IVC SCH ×2 (18:14→20:36)
[2018-04-28] MEDS: Ondansetron 4 MG/2 ML VIAL IVP PRN (21:47)
[2018-04-29] MEDS: Piperacillin/Tazobactam 3.375 GM in 0.9 % Sodium Chloride Mini Bag 100 ML IVPB SCH ×3 (00:29→15:30)
[2018-04-29] MEDS: OXYCODONE Oral CONC 10 MG/0.5 ML ORAL.SYG SL PRN ×3 (01:32→17:51)
[2018-04-29 05:27] LABS: Basophils # 0.1 K/mcL (0.0-0.2); Basophils % 0.9 %; Eosinophils # 0.1 K/mcL (0.0-0.6); Eosinophils % 1.6 %; Hematocrit 26.7 % (35.3-44.9); Hemoglobin 8.4 g/dL (11.5-15.4); Immature Granulocytes % 0.2 % (0-4); Lymphocytes # 1.1 K/mcL (0.6-4.6); Lymphocytes % 20.8 %; Mean Corpuscular HGB Conc 31.5 g/dL (31.6-35.5); Mean Corpuscular Hemoglobin 27.3 pg (28.0-33.3); Mean Corpuscular Volume 86.7 fL (83.0-100.0); Mean Platelet Volume 10.3 fL (9.4-12.4); Monocytes # 0.6 K/mcL (0.0-1.3); Monocytes % 10.8 %; Neutrophils # 3.6 K/mcL (1.6-8.9); Platelet Count 303 K/mcL (140-400); Red Blood Count 3.08 M/mcL (3.82-4.97); Red Cell Distribution Width 14.7 % (11.5-14.5); Segmented Neutrophils % 65.7 %
[2018-04-29] MEDS: *HR* Heparin 5,000 UNIT/ML VIAL SQ SCH ×2 (05:39→18:13)
[2018-04-29 05:44] LABS: BUN/Creatinine Ratio 10 (6-26); Blood Urea Nitrogen 6 mg/dL (8-23); Calcium 8.3 mg/dL (8.6-10.3); Carbon Dioxide 20 mEq/L (23-29); Chloride 111 mEq/L (98-107); Glucose 89 mg/dL (70-105); Osmolality,Calculated 281 (280-300); Potassium 3.7 mEq/L (3.5-5.1); Sodium 137 mEq/L (136-145); eGFR For African Americans > 60 (> 60); eGFR For Non-African Americans > 60 (> 60)
[2018-04-29] MEDS: Ondansetron 4 MG/2 ML VIAL IVP PRN ×2 (08:27→15:35)
--- NOTE | 2018-04-29 15:06 | Internal Med Progress Note ---
Date of Encounter: 04/29/18 Time of Encounter: 13:00 - Assessment and plan (1) Sigmoid diverticulosis Current Visit: Yes Status: Acute Assessment and plan: CT abdomen and pelvis showed sigmoid diverticulitis and ileus. Surgery consulted for diverticulitis and ileus. Patient has been on Plan: - Zosyn IV TID, as patient has failed metronidazole and cipro - pain control: Oxycodone 5mg SL - surgery consult in for the AM 04/28: Day #2 IV Zosyn. Anticipate attend a 14 day course of therapy. Records indicate she was treated with Cipro alone, which would not necessarily adequately treat diverticulitis, with anaerobic involvement. We will continue Zosyn today and then make further decisions on antibiotics pending clinical progress. She was noted to have a possible ileus, a repeat abdominal film is ordered. As not showing any clinical signs of this. We will continue to monitor. We will advance to clears as able. 04/29: Day #3 IV Zosyn. Improving. KUB yest showed min small bowel dilation. No obx. Continue to advance diet as tolerated. Pt did have mild nausea today. Will repeat abd film in AM if persist or does not continue to improve. Given the fact that she was labeled a "cipro" failure, I would consider treating her with Augmentin as an outpatient for probably an additional 7 days. I still am not clear if she ever received Flagyl along with her Cipro. If she continues to improve would change to oral Augmentin tomorrow. Case discussed with family at bedside. (2) Ileus Current Visit: Yes Status: Acute Assessment and plan: Possibly 2/2 to electrolyte imbalance, hypokalemia. Plan: - correct potassium levels -Consider NG if patient starts to have vomiting - Zofran for nausea - Diet NPO. 04/28: See above. Continue IV fluids and electrolyte replacement. 04/29: Improving. Slowly advance diet as tolerated. (3) Essential hypertension Current Visit: No Status: Chronic Assessment and plan: Patient is NPO therefore will add IV hydralazine for prn coverage for systolic BP > 160. 04/28: Blood pressure is stable, monitor (4) DVT prophylaxis Current Visit: No Status: Acute Assessment and plan: Heparin SQ (5) Hypokalemia Current Visit: Yes Status: Acute Assessment and plan: potassium 2.9. replaced K 10meq in the Ed. Replace with KCl 40meq IV and recheck 04/29: Improved. Potassium replacement is in IV fluids as well. - Time Spent With Patient Total time spent is greater than 50% in coordination of care (as documented) at patient's floor/unit and/or counseling patient: 25 - 35 minutes - Subjective Interval history: Ms. Chaney is a 67 year old female pacemaker, gastric ulcer, hypertension, dementia, and PE who presented to the ED at [facility] for left upper quadrant pain. Patient states that she has been having abdominal cramping for about 3 weeks. She is not able to eat anything for about a week. She is unsure how long she was in the hospital but she was discharged on 04/19 from [facility] at [place]. She believes that she has been on Cipro for one week. Her last bowel movement was one week ago. She does admit to associated nausea and vomiting. Denies dysuria, diarrhea, hemoptysis, hematochezia. Patient's previous surgeries have been at [facility] but her surgeon no longer works at [facility]. She cannot recall how long ago her last colonoscopy was. Upon arrival to the ED, patient's blood pressure was 176/110, heart rate of 76. Labs showed a hemoglobin of 10.9 platelet count of 421 potassium of 2.9 and creatinine of 0.87,. lactic acid, Amylase and lipase were negative. Liver enzymes are within normal limits. UA suspicious for a UTI with positive nitrates. CT of the abdomen and pelvis showed moderate sigmoid d diverticulosis , persistent probable adynamic ileus. In the ED, patient was given Phenergan, 1 L bolus, potassium chloride 10 mEq to 100 ml, Cipro, Flagyl, Dilaudid, and Zofran. Patient was transferred from [facility] in [place] to [facility] for surgical consult for sigmoid diverticulitis and ileus. 04/28: Patient is currently day #2 IV Zosyn. Her history is somewhat limited by her dementia. She does state that she has ongoing abdominal pain on the left mid abdomen but it is significantly improved. No fevers or chills. Denies any nausea vomiting or diarrhea. No chest pain or shortness of breath. 04/29: Overall feeling improved. Still having some mild nausea but has tolerated some clears. Abdominal pain improving (Left mid abd). No fevers or chills. No chest pain or shortness of breath. No bowel movement as of yet. - Constitutional Vitals: Temp Pulse Resp BP Pulse Ox 98.4 F 77 16 148/82 99 04/29/18 10:58 04/29/18 10:58 04/29/18 10:58 04/29/18 10:58 04/29/18 10:58 General appearance: Present: A&O X 3, no acute distress - Head Head exam: Present: atraumatic, normocephalic - Eye Eye exam: Present: PERRL, conjuntiva pink, sclera anicteric Pupils: Present: PERRL - Neck Neck exam general surgery: Present: supple, trachea midline. Absent: lymphadenopathy - Respiratory Respiratory exam: Present: CTAB. Absent: accessory muscle use, rales, rhonchi, wheezes - Cardiovascular Cardiovascular exam: Present: RRR, +S1, +S2. Absent: diastolic murmur, gallop, rubs, systolic murmur - GI/Abdominal GI/Abdominal exam: Present: normal bowel sounds, soft, tenderness, no peritoneal signs. Absent: distended - Extremities Exam Extremities exam: Present: warm, radial pulses palpable and symmetrical. Absent : calf tenderness, cyanotic, pedal edema - Neurological Exam Neurological exam: Present: CN II-XII intact, oriented X3, no focal deficits. Absent: pronater drift, facial droop, speech deficit - Skin Skin exam: Present: dry, intact Internal Medicine: Result - Labs CBC & Chem 7: 04/29/18 05:02 04/29/18 05:02 Labs: Short CBC 04/29/18 Range/Units 05:02 WBC 5.5 (4.3-11.1) K/mcL Hgb 8.4 L (11.5-15.4) g/dL Hct 26.7 L (35.3-44.9) % Plt Count 303 (140-400) K/mcL Neutrophils # 3.6 (1.6-8.9) K/mcL BMP 04/29/18 05:02 Sodium 137 Potassium 3.7 Chloride 111 H Carbon Dioxide 20 L BUN 6 L Creatinine 0.62 Glucose 89 Calcium 8.3 L - Impressions Impressions KUB X-Ray 04/28/18 12:40 IMPRESSION: Nonspecific bowel gas pattern. Minimal small bowel dilatation. D/ / 04/28/2018 15:09:19 Tono Atknison MD / carrol Interpreting Provider: Tono Atkinson MD Consult Discharge Plan - Plan Referrals: NONE,PCP [Primary Care Provider] -
[2018-04-29] MEDS: Potassium Chloride 40 MEQ in D5% in 0.9% NACL 1,000 ML IVC SCH (15:30)
[2018-04-29] MEDS ORDERED: *HR* Promethazine 25 MG/ML VIAL IVP ONE (19:23)
[2018-04-29] MEDS ORDERED: Pantoprazole 40 MG VIAL IVP ONE (20:42)
--- NOTE | 2018-04-29 20:50 | Event Note ---
Date of Encounter: 04/29/18 Time of Encounter: 20:46 Patient was reported as having nausea and then one emesis. Phenergan 12.5 was given due to zofran ineffective. Nursing reported the emesis as being dark brown in color. Hbg was 9.0 on admission, 8.4 this am and now waiting for a current h and h, to be resulted. Spoke with Dr. Perez who will see the patient recommended the patient be npo. One dose IV protonix at this time. Will hold heparin for now. Emesis was saved so will send sample to lab to test for blood. Patient also has an ileus.
[2018-04-30 00:30] LABS: Hemoglobin 10.2 g/dL (11.5-15.4)
[2018-04-30] MEDS: OXYCODONE Oral CONC 10 MG/0.5 ML ORAL.SYG SL PRN ×4 (00:37→22:52)
[2018-04-30] MEDS: Piperacillin/Tazobactam 3.375 GM in 0.9 % Sodium Chloride Mini Bag 100 ML IVPB SCH ×3 (01:25→16:11)
[2018-04-30] MEDS: Potassium Chloride 40 MEQ in D5% in 0.9% NACL 1,000 ML IVC SCH ×2 (01:31→07:36)
[2018-04-30 04:08] LABS: Hematocrit 30.3 % (35.3-44.9); Hemoglobin 9.7 g/dL (11.5-15.4)
[2018-04-30] MEDS: Ondansetron 4 MG/2 ML VIAL IVP PRN (07:34)
[2018-04-30 08:28] LABS: Hemoglobin 9.8 g/dL (11.5-15.4)
--- NOTE | 2018-04-30 09:20 | Gastroenterology Consult Note ---
Date of Encounter: 04/30/18 Time of Encounter: 09:14 - Assessment and plan (1) Dark emesis Current Visit: Yes Status: Acute Assessment and plan: - Reported history of dark brown emesis which was occult positive - No reported history of GI bleeds. Reports ibuprofen use OTC occasionally for arthritic pain. - H/H stable at 10.2/31.0 - Tender to plapation in epigastric region, less in LLQ and suprapubic - Last EGD/Colonoscopy on 04/05/17: Mild diffuse inflammation with one cratered, non bleeding ulcer in proximal duodenum. - Given 1 dose of protonix overnight, will continue - Pain, nausea, vomiting have resolved with supportive care. Plan - NPO - EGD this afternoon with Dr. Perez - Begin carafate QID, mechanically soft diet after procedure. - Follow up on pathology tomorrow. - Will need a follow up EGD/Colonoscopy in 6 weeks with outpatient GI Follow up. - Further plan to be discussed with Dr. Perez (2) Dementia Current Visit: Yes Status: Chronic Assessment and plan: - Limits HPI, does answer questions appropriately however is not able to remember all details. Qualifiers: Dementia type: unspecified type Dementia behavioral disturbance: without behavioral disturbance Qualified Code(s): F03.90 - Unspecified dementia without behavioral disturbance (3) Sigmoid diverticulosis Current Visit: Yes Status: Chronic Assessment and plan: - Mild pain in LLQ on palpation, no pain at rest - Has been receiving Zosyn, day #4 for reported failure of Cipro/Flagyl for diverticulitis on CT scan at [facility] - Pt reports constipation but no diarrhea. -Suspect that pain is more ileus related and not active diverticulitis. (4) Ileus Current Visit: Yes Status: Resolved Assessment and plan: Resolved. - Normal BM yesterday per patient. - Tolerating diet. No further n/v. - Continue supportive care. - Time Spent With Patient Total time spent is greater than 50% in coordination of care (as documented) at patient's floor/unit and/or counseling patient: GI History of Present Illness - Data of Consult Consult date: 04/30/18 Requesting Physician: Krishan Orr MD - Consult Narrative Reason for consult: Brown emesis History of present illness: Ms. Chaney is a 67 year old female with past medical history of hypothyroidism, arthritis, peptic ulcer disease, dementia presented to [facility] emergency room with complaint of left upper quadrant cramping pain 1 week. Per chart review and patient, she was recently admitted to [facility] for unknown duration however patient states she was discharged on 04/19/18. Patient is not verbally not a good historian and there is no family present at bedside at this time. CT scan at [facility] showed a moderate diverticulosis with a persistent adynamic ileus. She has been being treated with Zosyn (she has reportedly failed a trial of Cipro/Flagyl at [facility]), supportive care. Gastroenterology was consulted for reported brown emesis with concerns for upper GI bleed. Gastric occult test was positive. Today during interview, patient states that her pain has resolved and she is feeling back to her normal self. She denies any further episodes of nausea, vomiting. She states she has had a bowel movement most recently yesterday which was normal in color in nature for her. She states that she has never experienced hematemesis or coffee ground emesis in the past. She states that for her arthritis pain she occasionally takes ibuprofen however not very often. She is a former smoker quitting many years ago and a rare drinker. Most recent EGD and colonoscopy both performed on 04/05/17. EGD shows diffuse mild inflammation with one cratered nonbleeding ulcer in the proximal duodenum, greatest diameter of 8 mm. Colonoscopy showed a tortuous sigmoid colon extending to the splenic flexure, medium diverticula in the sigmoid and descending colon, grade 2 internal hemorrhoids. Past Med Surg Social Fam HX - Past Medical History Medical history: arthritis, cancer, thyroid disease, other Additional medical history: small bowel obstruction Psychiatric history: anxiety, depression - Past Surgical History Surgical History: cholecystectomy, colectomy, hysterectomy, orthopedic, other, other, pacemaker Additional surgical history: bowel surgery r/t small bowel obstruction September 29. bilat shoulder rotator cuff. bilat carpal tunnel - Social History Smoking Status: Former smoker Smokeless Tobacco Status: No Alcohol use: none Drug use: none - Family History Mother History Unknown: Yes Hx Family Cancer: Yes (lung) Father History Unknown: Yes Hx Family Cancer: Yes (lung) - Gastrointestinal Gastrointestinal: Present: abdominal pain, change in bowel habits, coffee ground emesis, constipation, nausea, vomiting. Absent: diarrhea, heartburn, hematemesis, hematochezia, melena - Constitutional Constitutional: no anorexia, no fever(s) - Cardiovascular Cardiovascular ROS: Absent: chest pain - Respiratory Respiratory IM: Absent: dyspnea - Neurological ROS Neurological GI: Present: confusion, memory loss. Absent: weakness - Integumentary Integumentary GI: Absent: rash - Constitutional Vitals: Temp Pulse Resp BP Pulse Ox 98.8 F 75 16 156/92 93 04/30/18 07:05 04/30/18 07:05 04/30/18 07:05 04/30/18 07:05 04/30/18 07:05 Exam: Gen.: Vitals noted. No acute distress. Alert however does struggle with memory at times. Answers questions appropriately HEENT: PERRL/EOMI, oropharynx clear, Normocephalic, atraumatic, MMM Cardiac: RRR, no murmur, +S1/S2 Pulmonary: CTA bilaterally, no wheezes, rales or rhonchi, equal chest expansion Abdomen: soft, tender to palpation in epigastric region, LLQ, suprapubic BS noted, no guarding, no rebound. Extremities: no BLE edema, nontender calf, no cyanosis or clubbing Neuro: A&Ox3, moves all extremities, no focal deficits Psych: Appropriate mood and behavior Results - Labs CBC & Chem 7: 04/30/18 07:55 04/29/18 05:02 Labs: Last Result Calcium 8.3 mg/dL (8.6-10.3) L 04/29/18 05:02 Gastric Occult Blood Positive (Negative) A 04/29/18 21:09 Entire Visit Hgb 9.8 g/dL (11.5-15.4) L 04/30/18 07:55 Hct 30.0 % (35.3-44.9) L 04/30/18 07:55 Total Bilirubin 0.4 mg/dL (0.3-1.0) 04/27/18 06:42 AST 21 Units/L (13-39) 04/27/18 06:42 ALT 11 Units/L (7-52) 04/27/18 06:42 Consult Discharge Plan - Plan Referrals: NONE,PCP [Primary Care Provider] -
[2018-04-30] MEDS ORDERED: *HR* Propofol 200 MG/20 ML VIAL IVP ONE (11:23)
--- NOTE | 2018-04-30 12:16 | Anesthesia Evaluation PreOp ---
Date of Encounter: 04/30/18 Time of Encounter: 12:14 - Past History Planned Operation: EGD Cardiac History: HTN, Pacemaker/ICD (pacemaker), Other (H/O PE) Pulmonary History: Former smoker (quit 18 years) QUALITY CONTROL TECH RAW MATERIALS History: Other (early dementia) Other Medical History: Thyroid, GERD Anesthesia History: No Prior Anesthetic Complications, Past Anesthesia Alcohol Use: none Drug use: none Medications and Allergies Bupropion HCl [Wellbutrin Xl] 150 mg PO QAM 01/08/18 [History] Ergocalciferol (VITAMIN D2) [Vitamin D2] 50,000 unit PO MO 01/08/18 [History] Levothyroxine [Synthroid] 50 mcg PO 0630 04/27/18 [History] Melatonin 5 mg PO QPM PRN 04/27/18 [History] 3 Allergy/AdvReac Type Severity Reaction Status Date / Time aspirin Allergy Gastrointestinal Verified 04/27/18 10:18 Upset ibuprofen Allergy Gastrointestinal Verified 04/27/18 10:18 Upset nalbuphine [From Nubain] Allergy See Verified 04/27/18 10:18 Comments morphine AdvReac Irritable Verified 04/27/18 10:18 - Meds/Allergy Pre-op Review Medications Reviewed: Yes Allergies Reviewed: Yes Beta Blockers on Current Med List: No Anesthesia Results - Labs 04/30/18 07:55 04/29/18 05:02 - Imaging EKG: report reviewed (01/08/2018 SINUS RHYTHM WITH SHORT MN INTERVAL Poor R wave progression LEFT ANTERIOR FASCICULAR BLOCK MODERATE VOLTAGE CRITERIA FOR LVH) Anesthesia Exam Vital Signs/O2 Sat/Glucose, Most Recent Temp Pulse Resp BP Pulse Ox 98.5 F 89 16 137/86 93 04/30/18 10:44 04/30/18 10:44 04/30/18 10:44 04/30/18 10:44 04/30/18 10:44 Blood Glucose* 118 Height: 5'2''/1.57m Weight: 132 lbs/60.2 kg NPO (# of Hours): 8 Pain Scale: 0 Pain Scale Used: Numeric (1 - 10) - HEENT Pupil (Motor): EOMI Mallampati: II Teeth: Normal, Missing Oral Opening: Greater than 3 - QUALITY CONTROL TECH RAW MATERIALS LOC: Oriented QUALITY CONTROL TECH RAW MATERIALS Motor: Normal RUE, Normal LUE, Normal RLE, Normal LLE, Normal Face QUALITY CONTROL TECH RAW MATERIALS Sensory: Normal: RUE, LUE, RLE, LLE, Face - Cardiac Rhythm: Regular Murmur: Systolic - Pulmonary Breath Sounds: bilateral Clear Respiratory Effort: Symmetrical Anesthesia Assess/Plan ASA Score: 3 Modified Tj Scale for Level of Consciousness: Cooperative, oriented, and tranquil Anesthetic Plan: MAC Monitoring Plan: Standard Monitors
--- NOTE | 2018-04-30 12:32 | Internal Med Progress Note ---
Date of Encounter: 04/30/18 Time of Encounter: 10:00 - Assessment and plan (1) Sigmoid diverticulosis Current Visit: Yes Status: Chronic Assessment and plan: CT abdomen and pelvis showed sigmoid diverticulitis and ileus. Surgery consulted for diverticulitis and ileus. Patient has been on Plan: - Zosyn IV TID, as patient has failed metronidazole and cipro - pain control: Oxycodone 5mg SL - surgery consult in for the AM 04/28: Day #2 IV Zosyn. Anticipate attend a 14 day course of therapy. Records indicate she was treated with Cipro alone, which would not necessarily adequately treat diverticulitis, with anaerobic involvement. We will continue Zosyn today and then make further decisions on antibiotics pending clinical progress. She was noted to have a possible ileus, a repeat abdominal film is ordered. As not showing any clinical signs of this. We will continue to monitor. We will advance to clears as able. 04/29: Day #4 IV Zosyn. Improving. Anticipate change to po Augmentin at discharge. (2) Dementia Current Visit: Yes Status: Chronic Qualifiers: Dementia type: unspecified type Dementia behavioral disturbance: without behavioral disturbance Qualified Code(s): F03.90 - Unspecified dementia without behavioral disturbance (3) Ileus Current Visit: Yes Status: Resolved Assessment and plan: Possibly 2/2 to electrolyte imbalance, hypokalemia. Plan: - correct potassium levels -Consider NG if patient starts to have vomiting - Zofran for nausea - Diet NPO. 04/28: See above. Continue IV fluids and electrolyte replacement. 04/30: Improving. Slowly advance diet as tolerated, pending EGD results (4) Dark emesis Current Visit: Yes Status: Acute Assessment and plan: Hb stable. EGD pending. - Time Spent With Patient Total time spent is greater than 50% in coordination of care (as documented) at patient's floor/unit and/or counseling patient: 25 - 35 minutes - Subjective Interval history: Ms. Chaney is a 67 year old female pacemaker, gastric ulcer, hypertension, dementia, and PE who presented to the ED at [facility] for left upper quadrant pain. Patient states that she has been having abdominal cramping for about 3 weeks. She is not able to eat anything for about a week. She is unsure how long she was in the hospital but she was discharged on 04/19 from [facility] [place]. She believes that she has been on Cipro for one week. Her last bowel movement was one week ago. She does admit to associated nausea and vomiting. Denies dysuria, diarrhea, hemoptysis, hematochezia. Patient's previous surgeries have been at [facility] but her surgeon no longer works at [facility]. She cannot recall how long ago her last colonoscopy was. Upon arrival to the ED, patient's blood pressure was 176/110, heart rate of 76. Labs showed a hemoglobin of 10.9 platelet count of 421 potassium of 2.9 and creatinine of 0.87,. lactic acid, Amylase and lipase were negative. Liver enzymes are within normal limits. UA suspicious for a UTI with positive nitrates. CT of the abdomen and pelvis showed moderate sigmoid d diverticulosis , persistent probable adynamic ileus. In the ED, patient was given Phenergan, 1 L bolus, potassium chloride 10 mEq to 100 ml, Cipro, Flagyl, Dilaudid, and Zofran. Patient was transferred from [facility] in [place] to [facility] for surgical consult for sigmoid diverticulitis and ileus. 04/28: Patient is currently day #2 IV Zosyn. Her history is somewhat limited by her dementia. She does state that she has ongoing abdominal pain on the left mid abdomen but it is significantly improved. No fevers or chills. Denies any nausea vomiting or diarrhea. No chest pain or shortness of breath. 04/29: Overall feeling improved. Still having some mild nausea but has tolerated some clears. Abdominal pain improving (Left mid abd). No fevers or chills. No chest pain or shortness of breath. No bowel movement as of yet. 7: Events overnight noted. Questionable hematemesis. The seen by GI with EGD planned. Hb remains stable at 10.2. Any abdominal pain although she is somewhat a poor historian. She denies any nausea or vomiting. No fevers or chills. States she was tolerating clears. She did state she had a bowel movement yesterday which was normal. - Constitutional Vitals: Temp Pulse Resp BP Pulse Ox 98.5 F 89 16 137/86 93 04/30/18 10:44 04/30/18 10:44 04/30/18 10:44 04/30/18 10:44 04/30/18 10:44 General appearance: Present: A&O X 3, no acute distress Exam: Forgetful - Head Head exam: Present: atraumatic, normocephalic - Eye Eye exam: Present: PERRL, conjuntiva pink, sclera anicteric Pupils: Present: PERRL - Neck Neck exam general surgery: Present: supple, trachea midline. Absent: lymphadenopathy - Respiratory Respiratory exam: Present: CTAB. Absent: accessory muscle use, rales, rhonchi, wheezes - Cardiovascular Cardiovascular exam: Present: RRR, +S1, +S2. Absent: diastolic murmur, gallop, rubs, systolic murmur - GI/Abdominal GI/Abdominal exam: Present: normal bowel sounds, soft, tenderness, no peritoneal signs. Absent: distended Additional comments: Left mid abd ttp - Extremities Exam Extremities exam: Present: warm, radial pulses palpable and symmetrical. Absent : calf tenderness, cyanotic, pedal edema - Neurological Exam Neurological exam: Present: CN II-XII intact, oriented X3, no focal deficits. Absent: pronater drift, facial droop, speech deficit - Skin Skin exam: Present: dry, intact Internal Medicine: Result - Labs CBC & Chem 7: 04/30/18 07:55 04/29/18 05:02 Labs: Short CBC 04/30/18 04/30/18 04/30/18 Range/Units 00:21 03:48 07:55 Hgb 10.2 L D 9.7 L 9.8 L (11.5-15.4) g/dL Hct 31.0 L 30.3 L 30.0 L (35.3-44.9) % Consult Discharge Plan - Plan Referrals: NONE,PCP [Primary Care Provider] -
[2018-04-30] MEDS ORDERED: Tetracaine/Benzocaine/Butamben 200MG/SPRAY (100SPY/BOT) MM ONE (13:13)
[2018-04-30] MEDS: Sucralfate 1 GM TABLET PO SCH ×2 (16:13→21:14)
[2018-05-01] MEDS ORDERED: Ketorolac 15 MG/ML VIAL IVP ONE (00:35)
[2018-05-01] MEDS ORDERED: Metoclopramide 10 MG/2 ML VIAL IVP ONE (00:35)
[2018-05-01] MEDS ORDERED: Acetaminophen 325 MG TABLET PO ONE (00:38)
[2018-05-01] MEDS: Piperacillin/Tazobactam 3.375 GM in 0.9 % Sodium Chloride Mini Bag 100 ML IVPB SCH ×3 (01:10→15:49)
[2018-05-01] MEDS: Potassium Chloride 40 MEQ in D5% in 0.9% NACL 1,000 ML IVC SCH ×2 (02:31→15:55)
[2018-05-01] MEDS: OXYCODONE Oral CONC 10 MG/0.5 ML ORAL.SYG SL PRN ×2 (07:47→15:49)
[2018-05-01] MEDS: Sucralfate 1 GM TABLET PO SCH ×4 (07:48→20:42)
[2018-05-01 08:07] LABS: Basophils % 0.5 %; Eosinophils # 0.1 K/mcL (0.0-0.6); Eosinophils % 2.3 %; Hematocrit 31.5 % (35.3-44.9); Immature Granulocytes % 0.3 % (0-4); Lymphocytes % 16.4 %; Mean Corpuscular HGB Conc 31.7 g/dL (31.6-35.5); Mean Corpuscular Hemoglobin 27.5 pg (28.0-33.3); Mean Corpuscular Volume 86.5 fL (83.0-100.0); Mean Platelet Volume 10.1 fL (9.4-12.4); Monocytes # 0.6 K/mcL (0.0-1.3); Monocytes % 10.5 %; Neutrophils # 4.3 K/mcL (1.6-8.9); Platelet Count 364 K/mcL (140-400); Red Blood Count 3.64 M/mcL (3.82-4.97); Red Cell Distribution Width 15.1 % (11.5-14.5)
[2018-05-01 08:31] LABS: BUN/Creatinine Ratio 3 (6-26); Blood Urea Nitrogen 2 mg/dL (8-23); Calcium 9.1 mg/dL (8.6-10.3); Carbon Dioxide 24 mEq/L (23-29); Chloride 110 mEq/L (98-107); Glucose 109 mg/dL (70-105); Osmolality,Calculated 289 (280-300); Potassium 3.8 mEq/L (3.5-5.1); Sodium 141 mEq/L (136-145); eGFR For African Americans > 60 (> 60); eGFR For Non-African Americans > 60 (> 60)
[2018-05-01] MEDS ORDERED: Isovue-370 500 ML INFUS..BTL IV ONE (14:55)
--- NOTE | 2018-05-01 15:02 | Discharge Summary ---
- NOTES TO OUTPATIENT PROVIDER Notes to Outpatient Provider: Patient presented with abdominal pain secondary to diverticulitis which was found on CT, underwent EGD which showed mild diffuse cratered nonbleeding ulcer in the duodenum. GI requests follow-up EGD/ Colonoscopy in 6 weeks. Continue carafate QID. Orders not resulted at time of discharge: Pending orders 04/30/18 13:23 Surgical Pathology [PTH] Routine 04/30/18 15:07 H. pylori Urease Culture [RM] Stat 05/01/18 14:55 abdominal/pelvis CT with contrast [CT abd pelvis w iv and oral] [CT] Routine Date of Encounter: 05/01/18 Time of Encounter: 14:59 - Discharge Diagnosis (1) Dark emesis Status: Acute Assessment and Plan: Hb stable. EGD pending. (2) Sigmoid diverticulosis Status: Chronic Assessment and Plan: Day 5 IV Zosyn. Pain has improved, I believe antibiotic course is complete. (3) Dementia Status: Chronic Qualifiers: Dementia type: unspecified type Dementia behavioral disturbance: without behavioral disturbance Qualified Code(s): F03.90 - Unspecified dementia without behavioral disturbance (4) Ileus Status: Resolved Hospital course: Ms. Chaney is a 67 year old female - Time Spent with Patient Total time spent providing and/or coordinating discharge services: - Discharge Medications Home Medications: Bupropion HCl [Wellbutrin Xl] 150 mg PO QAM 01/08/18 [History] Ergocalciferol (VITAMIN D2) [Vitamin D2] 50,000 unit PO MO 01/08/18 [History] Levothyroxine [Synthroid] 50 mcg PO 0630 04/27/18 [History] Melatonin 5 mg PO QPM PRN 04/27/18 [History] Allergies/Adverse Reactions: 3 Allergy/AdvReac Type Severity Reaction Status Date / Time aspirin Allergy Gastrointestinal Verified 04/27/18 10:18 Upset ibuprofen Allergy Gastrointestinal Verified 04/27/18 10:18 Upset nalbuphine [From Nubain] Allergy See Verified 04/27/18 10:18 Comments morphine AdvReac Irritable Verified 04/27/18 10:18 Date of admission: 04/27/18 13:22 Primary care physician: PCP NONE Consults: 04/29/18 20:43 Consult to Gastroenterology [CONS] Routine Consulting Provider: [facility] Reason for Consult: Had emesis of brown liquid Hgb 8.4 Time Notified: 20:43 Call Completed: Yes Discharging clinician: Alek Farley Anticipated date of discharge: 05/02/18 - Constitutional Vitals: Temp Pulse Resp BP Pulse Ox 98.6 F 80 12 146/92 98 05/01/18 14:21 05/01/18 14:21 05/01/18 14:21 05/01/18 14:21 05/01/18 14:21 General appearance: Present: A&O X 3, no acute distress - Discharge Instructions Follow Up With: NONE,PCP [Primary Care Provider] - - VTE Documentation of Mechanical Device: Intermittent pneumatic compression device
--- NOTE | 2018-05-01 15:39 | Internal Med Progress Note ---
Date of Encounter: 05/01/18 Time of Encounter: 15:00 - Assessment and plan (1) Esophageal ulcer without bleeding Current Visit: Yes Status: Acute Assessment and plan: On PPI and carafate. Biopsies pending. (2) Gastric ulcer without hemorrhage or perforation Current Visit: Yes Status: Chronic Assessment and plan: No overt bleeding noted. Qualifiers: Gastric ulcer chronicity: chronic Qualified Code(s): K25.7 - Chronic gastric ulcer without hemorrhage or perforation (3) Sigmoid diverticulosis Current Visit: Yes Status: Chronic Assessment and plan: Continues to have pain especially on R side. Not eating much. Will repeat CT scan tonight. (4) Dementia Current Visit: Yes Status: Chronic Assessment and plan: Supportive care. Qualifiers: Dementia type: unspecified type Dementia behavioral disturbance: without behavioral disturbance Qualified Code(s): F03.90 - Unspecified dementia without behavioral disturbance (5) Hypothyroidism Current Visit: No Status: Chronic Assessment and plan: Continue supplement. Qualifiers: Hypothyroidism type: acquired Qualified Code(s): E03.9 - Hypothyroidism, unspecified (6) Essential hypertension Current Visit: No Status: Chronic Assessment and plan: BP essentially controlled at this time. - Time Spent With Patient Total time spent is greater than 50% in coordination of care (as documented) at patient's floor/unit and/or counseling patient: - Subjective Interval history: Ms Parrish is currently admitted for abd pain and presumptive diverticulitis. She remains moderate to high risk due to potential for worsening clinical status. Ms Parrish is still having abdominal pain. She says she is not eating much. No fever or chills. Having pain in lower abdomen and upper midline area. No diarrhea. No CP or SOB. - Constitutional Vitals: Temp Pulse Resp BP Pulse Ox 98.6 F 80 12 146/92 98 05/01/18 14:21 05/01/18 14:21 05/01/18 14:21 05/01/18 14:21 05/01/18 14:21 General appearance: Present: A&O X 3, no acute distress - Head Head exam: Present: normocephalic - Eye Eye exam: Present: EOMI, conjuntiva pink - ENT ENT exam: Present: mucous membranes moist - Respiratory Respiratory exam: Present: CTAB. Absent: rales, rhonchi, wheezes - Cardiovascular Cardiovascular exam: Present: RRR. Absent: tachycardia - GI/Abdominal GI/Abdominal exam: Present: soft, tenderness Additional comments: tender in midepigastric area and R lower abdomen. No rebound, rigidity or guarding. - Extremities Exam Extremities exam: Present: warm. Absent: tenderness - Neurological Exam Neurological exam: Present: alert, oriented X3, no focal deficits - Skin Skin exam: Present: dry, warm Internal Medicine: Result - Labs CBC & Chem 7: 05/01/18 07:51 05/01/18 07:51 Labs: Short CBC 05/01/18 Range/Units 07:51 WBC 6.1 (4.3-11.1) K/mcL Hgb 10.0 L (11.5-15.4) g/dL Hct 31.5 L (35.3-44.9) % Plt Count 364 (140-400) K/mcL Neutrophils # 4.3 (1.6-8.9) K/mcL BMP 05/01/18 07:51 Sodium 141 Potassium 3.8 Chloride 110 H Carbon Dioxide 24 BUN 2 L Creatinine 0.69 Glucose 109 H Calcium 9.1 - VTE Documentation of Mechanical Device: Intermittent pneumatic compression device Consult Discharge Plan - Plan Referrals: NONE,PCP [Primary Care Provider] -
[2018-05-01] MEDS: Ondansetron 4 MG/2 ML VIAL IVP PRN ×2 (15:47→21:43)
[2018-05-02] MEDS: Piperacillin/Tazobactam 3.375 GM in 0.9 % Sodium Chloride Mini Bag 100 ML IVPB SCH ×2 (00:12→07:43)
[2018-05-02 07:14] LABS: Hematocrit 32.7 % (35.3-44.9); Hemoglobin 10.4 g/dL (11.5-15.4); Mean Corpuscular HGB Conc 31.8 g/dL (31.6-35.5); Mean Corpuscular Hemoglobin 26.8 pg (28.0-33.3); Mean Corpuscular Volume 84.3 fL (83.0-100.0); Platelet Count 442 K/mcL (140-400); Red Blood Count 3.88 M/mcL (3.82-4.97); Red Cell Distribution Width 15.3 % (11.5-14.5)
[2018-05-02 07:35] LABS: BUN/Creatinine Ratio 5 (6-26); Blood Urea Nitrogen 4 mg/dL (8-23); Calcium 9.2 mg/dL (8.6-10.3); Carbon Dioxide 23 mEq/L (23-29); Chloride 109 mEq/L (98-107); Glucose 109 mg/dL (70-105); Magnesium 1.9 mg/dL (1.6-2.6); Osmolality,Calculated 285 (280-300); Potassium 3.8 mEq/L (3.5-5.1); Sodium 139 mEq/L (136-145); eGFR For African Americans > 60 (> 60); eGFR For Non-African Americans > 60 (> 60)
[2018-05-02] MEDS: Potassium Chloride 40 MEQ in D5% in 0.9% NACL 1,000 ML IVC SCH (07:42)
[2018-05-02] MEDS: Ondansetron 4 MG/2 ML VIAL IVP PRN (07:43)
[2018-05-02] MEDS: Sucralfate 1 GM TABLET PO SCH (07:43)
[2018-05-02] MEDS: OXYCODONE Oral CONC 10 MG/0.5 ML ORAL.SYG SL PRN (07:56)
[2018-05-02] MEDS ORDERED: BuPROPion XL (24 HR) 150 MG TABLET PO SCH (09:00)
[2018-05-02 10:43] VITALS: BP 144/95
--- NOTE | 2018-05-02 11:44 | Discharge Summary ---
- NOTES TO OUTPATIENT PROVIDER Notes to Outpatient Provider: Pt admitted with nausea and vomiting and abdominal pain. Found to have 3 esophageal ulcers and gastritis with gastric ulcer. She continued to have pain and nausea and CT repeated. No acute issue except for compression fracture - will need further work up. Also has hiatel hernia. Orders not resulted at time of discharge: Pending orders 04/30/18 13:23 Surgical Pathology [PTH] Routine Date of Encounter: 05/02/18 Time of Encounter: 11:38 - Discharge Diagnosis (1) Esophageal ulcer without bleeding Priority: Primary Status: Acute (2) Gastric ulcer without hemorrhage or perforation Priority: Secondary Status: Chronic Qualifiers: Gastric ulcer chronicity: chronic Qualified Code(s): K25.7 - Chronic gastric ulcer without hemorrhage or perforation (3) Hiatal hernia Priority: Secondary Status: Chronic (4) Sigmoid diverticulosis Priority: Secondary Status: Chronic (5) Dementia Priority: Secondary Status: Chronic Qualifiers: Dementia type: unspecified type Dementia behavioral disturbance: without behavioral disturbance Qualified Code(s): F03.90 - Unspecified dementia without behavioral disturbance (6) Hypothyroidism Priority: Secondary Status: Chronic Qualifiers: Hypothyroidism type: acquired Qualified Code(s): E03.9 - Hypothyroidism, unspecified (7) Essential hypertension Priority: Secondary Status: Chronic (8) Hypokalemia Priority: Secondary Status: Resolved Hospital course: Ms. Chaney is a 67 year old female with hx of uterine carcinoma presented with abd pain and nausea and vomiting. She was transferred from another facility. CT did not show any acute process though there was concern for diverticulitis. She was subsequently admitted. Ms Chaney was admitted to [facility]. She was started on abx and seen by GI. She underwent EGD and was found to have 3 esophageal ulcers and gastritis with gastric ulcer. She was continued on NPO then clear liquid diet. Ultimately she was advanced to regular. She continued to have abd pain and CT was repeated. It was significant only for thoracic compression fracture. She has not been eating well but feels that will improve at home. At this time she is afebrile. Her is at bedside. Education has been given. She feels ready for discharge home. Discharge discussed with: patient, family - Time Spent with Patient Total time spent providing and/or coordinating discharge services: 45min - Discharge Medications Prescriptions: Omeprazole [PriLOSEC] 40 mg PO DAILY #30 cap Ondansetron HCl [Zofran] 4 mg PO Q6H PRN #30 tablet PRN Reason: Nausea And Vomiting Sucralfate [Carafate] 1 gm PO QID #150 ml Home Medications: Bupropion HCl [Wellbutrin Xl] 150 mg PO QAM 01/08/18 [History] Ergocalciferol (VITAMIN D2) [Vitamin D2] 50,000 unit PO MO 01/08/18 [History] Levothyroxine [Synthroid] 50 mcg PO 0630 04/27/18 [History] Melatonin 5 mg PO QPM PRN 04/27/18 [History] Omeprazole [PriLOSEC] 40 mg PO DAILY #30 cap 05/02/18 [Rx] Ondansetron HCl [Zofran] 4 mg PO Q6H PRN #30 tablet 05/02/18 [Rx] Sucralfate [Carafate] 1 gm PO QID #150 ml 05/02/18 [Rx] Allergies/Adverse Reactions: 3 Allergy/AdvReac Type Severity Reaction Status Date / Time aspirin Allergy Gastrointestinal Verified 04/27/18 10:18 Upset ibuprofen Allergy Gastrointestinal Verified 04/27/18 10:18 Upset nalbuphine [From Nubain] Allergy See Verified 04/27/18 10:18 Comments morphine AdvReac Irritable Verified 04/27/18 10:18 Date of admission: 04/27/18 13:22 Primary care physician: PCP NONE Consults: 04/29/18 20:43 Consult to Gastroenterology [CONS] Routine Consulting Provider: [facility] [place] Reason for Consult: Had emesis of brown liquid Hgb 8.4 Time Notified: 20:43 Call Completed: Yes Discharging clinician: Gregory Thomas Anticipated date of discharge: 05/02/18 - Constitutional Vitals: Temp Pulse Resp BP Pulse Ox 97.6 F 95 16 144/95 98 05/02/18 10:39 05/02/18 10:39 05/02/18 10:39 05/02/18 10:39 05/02/18 10:39 General appearance: Present: A&O X 3, no acute distress - Head Head exam: Present: normocephalic - Eye Eye exam: Present: EOMI, conjuntiva pink - ENT ENT exam: Present: mucous membranes dry - Respiratory Respiratory exam: Present: CTAB. Absent: rales, rhonchi, wheezes - Cardiovascular Cardiovascular exam: Present: RRR. Absent: tachycardia - GI/Abdominal GI/Abdominal exam: Present: normal bowel sounds, soft - Extremities Exam Extremities exam: Present: warm. Absent: tenderness - Neurological Exam Neurological exam: Present: alert, oriented X3 - Skin Skin exam: Present: dry, warm - Patient Status Disposition: Home, Self-Care Condition: Good Functional capacity at discharge: independent ambulation Overall status at discharge: patient is progressing back to baseline - Discharge Instructions Instructions: Hypothyroidism (DC), Chronic Hypertension (DC) Follow Up With: Isaiah Morillo MD [Non-Partnered Physician] - (Patient informed that she will need to call her PCP and schedule a hospital f/u in 5-7 days. Thank you) Additional Instructions: Please schedule with PCP in next 1-2 weeks. - Diet and Activity Activity: increase activity as tolerated Diet: low fat, low cholesterol - VTE Documentation of Mechanical Device: Intermittent pneumatic compression device
== END 2018-05-02 14:57 | disposition home or self-care (01) | DRG 381 ==
LOC: 3ANU → SUATTDRO 13:22
PROVIDERS: ADMIT Family Medicine; ATTEND Internal Medicine
PROC: ENDOEBX (2018-04-30 13:00)